=== PATIENT | female | born 1980 | race Caucasian/White ===

== ENCOUNTER 2022-06-11 09:53 | Day surgery (SDC) | payer BC ==
[~2022-06-11 09:53] MED LIST: Propofol 200 MG/20 ML SDV ONE
[2022-06-11] MEDS ORDERED: Lactated Ringers 1,000 ML IV SCH (10:15)
[2022-06-11] MEDS ORDERED: Sodium Chloride 0.9% 10 ML Syringe FLUSH PRN (10:15)
[2022-06-11 19:11] VITALS: BP 118/74; PULSE 52
== END 2022-06-11 12:05 | disposition home or self-care (01) ==
LOC: LL.SDS 09:53
PROVIDERS: ATTEND Surgery
DX: K31.819 Angiodysplasia of stomach and duodenum without bleeding (principal); K31.89 Other diseases of stomach and duodenum; K22.89 Other specified disease of esophagus; K21.00 Gastro-esophageal reflux disease with esophagitis, without bleeding; K44.9 Diaphragmatic hernia without obstruction or gangrene; I10 Essential (primary) hypertension; F33.42 Major depressive disorder, recurrent, in full remission; E78.2 Mixed hyperlipidemia; E78.5 Hyperlipidemia, unspecified; I49.8 Other specified cardiac arrhythmias; E79.0 Hyperuricemia without signs of inflammatory arthritis and tophaceous disease; R05.9 Cough, unspecified; Z79.899 Other long term (current) drug therapy; Z98.890 Other specified postprocedural states
CPT/HCPCS: J2704; J7120

== ENCOUNTER 2025-03-15 11:16 | Emergency (ER) | payer OTHER ==
[2025-03-15 11:19] VITALS: PULSE 90
[2025-03-15] MEDS: Aspirin 81 MG Tab.Chew PO ONE (11:34)
[2025-03-15 11:35] LABS: BASOPHILS ABSOLUTE AUTO 0.03 K/uL (0.00-0.20); BASOPHILS PERCENT AUTO 0.5 % (0.0-2.0); EOSINOPHILS ABSOLUTE AUTO 0.04 K/uL (0.00-0.50); EOSINOPHILS PERCENT AUTO 0.7 % (0.0-5.0); HEMATOCRIT 38.3 % (34.0-46.0); HEMOGLOBIN 13.6 g/dL (11.7-15.5); IMMATURE GRAN ABSOLUTE AUTO 0.02 10^3/uL (0.00-0.04); IMMATURE GRAN PERCENT AUTO 0.3 % (0.0-0.4); LYMPHOCYTES ABSOLUTE AUTO 1.31 K/uL (0.50-3.50); LYMPHOCYTES PERCENT AUTO 21.3 % (10.0-50.0); MEAN CORPUSCULAR HGB CONC 35.5 g/dL (31.7-36.0); MEAN CORPUSCULAR VOLUME 95.8 fL (84.0-98.0); MONOCYTES ABSOLUTE AUTO 0.68 K/uL (0.00-1.00); MONOCYTES PERCENT AUTO 11.1 % (2.0-14.0); NEUTROPHILS ABSOLUTE AUTO 4.06 K/uL (1.40-7.00); NEUTROPHILS PERCENT AUTO 66.1 % (45.0-80.0); PLATELET COUNT,PLT 180 K/uL (150-350); RED CELL DISTRIBUTION WIDTH 12.7 % (11.2-14.1); WHITE BLOOD CELL COUNT,WBC 6.1 K/uL (4.0-10.2)
[2025-03-15] MEDS: Ketorolac 30 MG/ML SDV IVPUSH ONE (11:48)
[2025-03-15] MEDS: Sodium Chloride 0.9% 10 ML Syringe FLUSH PRN (11:49)
[2025-03-15 11:57] LABS: INR 1.2 (0.9-1.1); PROTHROMBIN TIME 12.1 SEC (9.0-11.1); PTT,PARTIAL THROMBOPLSTIN TIME 27.2 SEC (23.8-34.4)
[2025-03-15 12:06] LABS: ALBUMIN 3.6 g/dL (3.4-5.0); BILIRUBIN TOTAL 0.7 mg/dL (0.2-1.0); CALCIUM 9.1 mg/dL (8.5-10.1); CARBON DIOXIDE,CO2 26.7 mmol/L (21.0-32.0); CREATININE 1.06 mg/dL (0.51-1.17); EST CRCL DRUG DOSING (CG) 57.87 mL/min; POTASSIUM,K 3.4 mmol/L (3.5-5.1); PROTEIN TOTAL,TP 7.9 g/dL (6.4-8.2)
[2025-03-15 12:08] LABS: ANION GAP 12.7 meq/L (7-15)
[2025-03-15] MEDS: Potassium Bicarbonate/Cit Ac 20 MEQ Effervescent Tab PO ONE (12:26)
[2025-03-15 12:30] LABS: C-REACTIVE PROTEIN 0.98 mg/dL (0.05-0.30)
[2025-03-15 12:56] VITALS: BP 122/92
== END 2025-03-15 13:30 | disposition home or self-care (01) ==
LOC: LL.ED 11:16
DX: J10.1 Influenza due to other identified influenza virus with other respiratory manifestations (principal); I10 Essential (primary) hypertension; Z79.51 Long term (current) use of inhaled steroids; Z79.899 Other long term (current) drug therapy
CPT/HCPCS: 36415; 71045; 80053; 83605; 83735; 83880; 84484; 85025; 85610; 85730; 86140; 87428-QW; 93005; 96374; 99285-25; A9270-GY; J1885